=== PATIENT | female | born 1960 | race Caucasian/White ===

== ENCOUNTER 2016-06-28 02:57 | Emergency (ER) | payer BC ==
--- NOTE | 2016-07-01 00:40 | ER ---
ADMIT: 06/28/2016 RM/LOC: ER [facility] MR#: [id number] [place], [place] [id number] [address] [place] [address] Emergency Room Report SEX: F AGE: 56 : 1960 DATE: 06/28/2016 HISTORY OF PRESENT ILLNESS: The patient is a 56-year-old female with past medical history of hypertension, SVT, and IBS, came to the ER with chief complaint of feeling dizzy and palpitation today while she was walking up the ladder and states the feeling just lasted a few seconds, and states in the last 2 weeks, she had a few similar episodes. The patient states she did not fall, did not hit the head, and denies any chest pain, shortness of breath. The patient states during that period of the palpitation, she also felt dizzy. The patient denies any vertigo or hearing problem. PHYSICAL EXAMINATION: VITAL SIGNS: The patient had blood pressure of 144/64 with a pulse rate of 88, and respiratory rate of 20, temperature was 96.6. GENERAL: The patient is in no obvious pain or distress. She is alert, oriented to person, place, and time. HEAD AND NECK: Exam is normal. The patient has no nystagmus. Ears are normal bilaterally. Normal TMs. NECK: There is no bruit on the neck. RESPIRATIONS: There are no murmurs. Normal breath sounds bilaterally. HEART: Normal heart sounds without any gallops or murmurs. EXTREMITIES: There is no swelling or tenderness on extremities. NEUROLOGICAL: Grossly normal. LABORATORY DATA: EKG was normal sinus rhythm with a rate of 80s. The CMP and CBC were normal. Orthostatic vitals were negative. ASSESSMENT AND PLAN: With the diagnosis of palpitation and questionable arrhythmia, the patient was put on Holter monitoring and was discharged to home to be followed up by the primary doctor in 48 hours. Plan was discussed with the patient. She is stable, in no pain or distress and she agreed upon it and was discharged to home. James Ivey MD/ martinez JOB #: [id number] CC: James Ivey MD, Attending Physician Beatriz Zhang MD, Family Physician
== END 2016-06-28 05:20 | disposition home or self-care (01) ==
LOC: ER 02:57
DX: R00.2 Palpitations (principal); I10 Essential (primary) hypertension; Z79.82 Long term (current) use of aspirin; Z79.899 Other long term (current) drug therapy; Z90.710 Acquired absence of both cervix and uterus